=== PATIENT | female | born 1995 | race Caucasian/White ===

== ENCOUNTER 2021-09-15 12:12 | Observation (INO) | payer MEDICAID, OTHER ==
[~2021-09-15] VITALS: Ht 160 cm; Wt 138.3 kg
[2021-09-15 12:47] VITALS: BP 134/90
[2021-09-15] MEDS ORDERED: IRON150T2 PO (16:25)
[2021-09-15] MEDS ORDERED: ALBUAER3 IN (16:25)
[2021-09-15] MEDS ORDERED: PREN-96 PO (16:26)
[2021-09-15] MEDS ORDERED: TERBUTALINE SULFATE 1 MG/ML 1ML VIAL SC SCH (17:00)
[2021-09-15] MEDS ORDERED: ACYC1CAP23 PO (17:14)
[2021-09-15 17:55] LABS: Alcohol, Urine < 3.0 mg/dL (0-10); Amphetamine Screen, Urine NEGATIVE (NEGATIVE); Barbiturate Scree,Urine NEGATIVE (NEGATIVE); Benzodiazephine Screen, Urine NEGATIVE (NEGATIVE); Cannabinoid Screen, Urine NEGATIVE (NEGATIVE); Cocaine Screen, Urine NEGATIVE (NEGATIVE); Opiate Scree,Urine NEGATIVE (NEGATIVE); Phencyclidine Screen, Urine NEGATIVE (NEGATIVE)
[2021-09-15] MEDS ORDERED: NIFEdipine 10 MG CAP PO ONE (18:15)
[2021-09-15] MEDS ORDERED: NIF10C PO (19:04)
[2021-09-15] MEDS ORDERED: ASPI-543 PO (19:04)
== END 2021-09-15 19:28 | disposition home or self-care (01) ==
LOC: ER 12:12 → LDRP 12:54 → ER 15:16 → LDRP 15:47 → UNDOADMOB 15:50 → UNDODISOB 19:28
PROVIDERS: ADMIT Obstetrics & Gynecology; ATTEND Obstetrics & Gynecology
DX: O26.893 Other specified pregnancy related conditions, third trimester (principal); Z20.822 Contact with and (suspected) exposure to COVID-19; R10.9 Unspecified abdominal pain; R10.2 Pelvic and perineal pain; R06.6 Hiccough; O99.513 Diseases of the respiratory system complicating pregnancy, third trimester; J06.9 Acute upper respiratory infection, unspecified; Z3A.36 36 weeks gestation of pregnancy
CPT/HCPCS: 36415; 59025; 76805; 76818; 80307; 81002; 87426; 87491; 87591; 94760; 96372; 99284; G0378; J3105